=== PATIENT | male | born 1965 | race Caucasian/White ===

== ENCOUNTER → 2021-04-11 11:36 | Outpatient (CLI) | payer SELFPAY | PROVIDERS: Visit Provider Nurse Practitioner | DX: Z20.822 Contact with and (suspected) exposure to COVID-19 (principal) | CPT/HCPCS: C9803; U0003; U0005 ==

== ENCOUNTER → 2021-07-22 13:20 | Outpatient (CLI) | payer OTHER, SELFPAY | PROVIDERS: Visit Provider Nurse Practitioner | DX: U07.1 COVID-19 (principal) | CPT/HCPCS: C9803; U0003; U0005 ==